=== PATIENT | female | born 1955 | race American Indian/Alaskan Native ===

== ENCOUNTER 2020-03-27 11:59 | Outpatient (CLI) | payer OTHER ==
--- NOTE | 2020-03-27 13:53 | XRay Report ---
CERVICAL SPINE 3 VIEWS INDICATION: Neck pain. COMPARISON: None. IMPRESSION: Normal alignment. Moderate degenerative disc disease with anterior and posterior spurri ng is identified at C5-6 and C6-7. Mild degenerative changes at C4-5. The facet joints are unremarkab le. No acute osseous or soft tissue abnormality. BILATERAL WRISTS 2 VIEWS INDICATION: RIGHT/LEFT WRIST PAIN. COMPARISON: None. IMPRESSION: No acute osseous or soft tissue abnormality. No significant DJD. Signer Name: Yovani Lake Jr, MD Signed: 03/27/2020 1:48 PM Workstation Name: [id number]
== END 2020-03-27 12:00 | disposition home or self-care (01) ==
LOC: XRAY 11:59
PROVIDERS: ATTEND Internal Medicine
DX: M50.322 Other cervical disc degeneration at C5-C6 level (principal); M47.812 Spondylosis without myelopathy or radiculopathy, cervical region; M25.532 Pain in left wrist; M25.531 Pain in right wrist
CPT/HCPCS: 72040